=== PATIENT | male | born 1980 | race Caucasian/White ===

== ENCOUNTER 2022-04-24 17:30 | Emergency (ER) | payer OTHER ==
[2022-04-24] MEDS ORDERED: Bupivacaine 0.5% 10 ML VIAL ONE (18:09)
== END 2022-04-24 18:36 | disposition home or self-care (01) ==
LOC: BURERS 17:30
DX: S62.336A Displaced fracture of neck of fifth metacarpal bone, right hand, initial encounter for closed fracture (principal); W22.8XXA Striking against or struck by other objects, initial encounter
CPT/HCPCS: 26605; J3490